=== PATIENT | female | born 1950 | race Caucasian/White ===

== ENCOUNTER 2019-10-11 08:06 | Outpatient (CLI) | payer MEDICARE, MEDICAID ==
[~2019-10-11 08:06] MED LIST: ASPI-496 PO; ATOR20TA PO; CHOL100011 PO; CLOP75TA PO; DABI75CA3 PO; DIVA250T14 PO; METO-93 PO; SIMV40TA20 PO
== END 2019-10-11 23:59 | disposition home or self-care (01) ==
LOC: CVU 08:06
PROVIDERS: ATTEND Internal Medicine Cardiovascular Disease
DX: I08.8 Other rheumatic multiple valve diseases (principal); I10 Essential (primary) hypertension; I48.91 Unspecified atrial fibrillation; E78.5 Hyperlipidemia, unspecified; Z87.891 Personal history of nicotine dependence
CPT/HCPCS: 93306; 93356

== ENCOUNTER → 2020-12-31 | Outpatient (CLI) | payer MEDICARE, MEDICAID | END | disposition home or self-care (01) | LOC: CFH 09:57 | PROVIDERS: ATTEND Internal Medicine Cardiovascular Disease | DX: I08.8 Other rheumatic multiple valve diseases (principal); E78.5 Hyperlipidemia, unspecified; I48.91 Unspecified atrial fibrillation; I11.9 Hypertensive heart disease without heart failure; Z87.891 Personal history of nicotine dependence | CPT/HCPCS: 93306 ==